=== PATIENT | female | born 1960 | race Hispanic/Latino ===

== ENCOUNTER 2024-07-31 16:51 | Emergency (ER) | payer BC ==
[~2024-07-31] VITALS: Ht 154.9 cm; Wt 46.3 kg
--- NOTE | 2024-07-31 17:44 | ERN ---
ED Note History of Present Illness Stated Complaint: MULTIPLE COMPLAINTS Chief Complaint: Weakness Time Seen by MD: 17:19 Dictation: Patient is a 64-year-old cirrhotic female coming in today with a abdominal distention and generalized body weakness for several days. She states she was just released from [facility] several days ago and had paracentesis done there, was told to find a furnace brazer. She states she called her primary care doctor who advised her to go to any hospital be admitted and have Gastroenterology examine her. Allergies: Coded Allergies: No Known Allergies (Unverified Allergy, Unknown, 07/31/24) Past Medical History Past Medical History: Hypotension, Liver Disease Surgical History: None History: Not Applicable RN Note Reviewed/Agreed w/PFSH: Yes Review of System Dictation CONSTITUTIONAL: NEGATIVE EXCEPT FOR HPI WEAKNESS HEAD/FACE: NEGATIVE EXCEPT FOR HPI EENT: NEGATIVE EXCEPT FOR HPI RESPIRATORY: NEGATIVE EXCEPT FOR HPI GASTROINTESTINAL/ABDOMINAL: NEGATIVE EXCEPT FOR HPI MILD DISTENTION GENITOURINARY: NEGATIVE EXCEPT FOR HPI MUSCULOSKELETAL: NEGATIVE EXCEPT FOR HPI INTEGUMENTARY: NEGATIVE EXCEPT FOR HPI NEUROLOGICAL/PSYCH: NEGATIVE EXCEPT FOR HPI HEMATOLOGIC/LYMPHATIC: NEGATIVE EXCEPT FOR HPI ALL SYSTEMS NEGATIVE, EXCEPT NOTED ABOVE. 13 POINT REVIEW OF SYSTEMS ASSESSED AND ALL NEGATIVE EXCEPT FOR ABOVE. Initial Vital Sign VS Vital Signs Date Time Temp Pulse Resp B/P (MAP) Pulse Ox O2 Delivery O2 Flow Rate FiO2 07/31/24 16:58 97.9 121 18 108/84 100 Room Air 0 07/31/24 19:54 21 Physical Exam Dictation VITAL SIGNS REVIEWED GENERAL APPEARANCE: ALERT, ORIENTED X 3, GB W AND POORLY CONDITIONED HEAD AND FACE: NON-TRAUMATIC. EYES: PERRL, PINK CONJUNCTIVAS, EYELID NO TRAUMA, ANTERIOR CHAMBER WITH ARCUS SENILIS. EARS: PINNAS INTACT AND NO SIGNS OF TRAUMA OR ERYTHEMA EAR CANALS CLEAR AND NO DISCHARGE TM NO ERYTHEMA NOSE: NO DISCHARGE, NO BLEEDING. OROPHARYNX: MOUTH NORMAL, TONGUE PINK, PHARYNX CLEAR,NO ERYTHEMA, TONSILS NO EXUDATES, NO ABSCESSES NOTED, MUCOUS M EMBRANE MOIST NECK: SUPPLE, NON-TENDER, NO THYROMEGALY, NO MASSES, NO JVD, NO BRUITS BREAST:DEFERRED CHEST:NO TENDERNESS, NO CREPITUS, NO PARADOXICAL MOVEMENT, NO RETRACTIONS LUNGS:CLEAR, WELL-VENTILATED, SYMMETRIC, NO RALES, NO WHEEZING, NO RHONCHI, NO STRIDOR, GOOD BREATH SOUNDS BILATERALLY HEART: REGULAR RATE, REGULAR RHYTHM, NO MURMUR, NO GALLOPS VASCULAR: NO PERIPHERAL EDEMA, ABDOMEN: SOFT, POSITIVE BOWEL SOUNDS, MILD DISTENTION WITHOUT WAVE SIGN NO GUARDING, NONTENDER, NO REBOUND, NO MASSES NO HEPATOMEGALY, NO SPLENOMEGALY, NO HANCOCK'S SIGN, NO HERNIAS. RECTAL: DEFERRED GENITAL: DEFERRED NEUROLOGICAL: NORMAL SPEECH, MOTOR FUNCTION INTACT, SENSORY FUNCTION INTACT MUSCULOSKELETAL: NECK NONTENDER, FULL RANGE OF MOTION, BACK NONTENDER, FULL RANGE OF MOTION, EXTREMITIES: NONTENDER, FULL RANGE OF MOTION SKIN: COLOR PINK, DRY, NO TURGOR, NO RASH, NO LACERATIONS, NO ABRASIONS, NO CONTUSIONS. LYMPHATIC: DEFERRED Results (Laboratory/Radiology) Laboratory/Radiology Laboratory Tests Test 07/31/24 17:58 White Blood Count 13.5 K/uL (4.8-10.8) H Red Blood Count 3.58 MIL/uL (4.00-5.50) L Hemoglobin 12.0 g/dL (12.0-16.0) Hematocrit 36.0 % (36-48) Mean Corpuscular Volume 100.6 fL (79-99) H Mean Corpuscular Hemoglobin 33.5 pg (27.0-33.0) H Mean Corpuscular Hemoglobin Concent 33.3 g/dL (32.0-36.0) Red Cell Distribution Width 14.5 % (11.0-15.5) Platelet Count 159 K/uL (130-400) Mean Platelet Volume 9.0 fL (7.5-10.5) Immature Granulocyte % (Auto) 0.7 % (0-1) Neutrophils (%) (Auto) 86.8 % (40.0-77.0) H Lymphocytes (%) (Auto) 7.8 % (21.0-51.0) L Monocytes (%) (Auto) 4.4 % (3.0-13.0) Eosinophils (%) (Auto) 0.1 % (0.0-8.0) Basophils (%) (Auto) 0.2 % (0.0-5.0) Neutrophils # (Auto) 11.7 K/uL (1.8-7.7) H Lymphocytes # (Auto) 1.1 K/uL (1.0-4.8) Monocytes # (Auto) 0.6 K/uL (0.1-1.0) Eosinophils # (Auto) 0.02 K/uL (0.00-0.70) Basophils # (Auto) 0.03 K/uL (0.00-0.20) Absolute Immature Granulocyte (auto 0.10 K/uL (0-1) Nucleated Red Blood Cells 0.0 % (0.0-0.19) White Cell Morphology Comment See comments Prothrombin Time 11.7 SEC (9.6-11.6) H Prothromb Time International Ratio 1.05 (0.85-1.15) Sodium Level 136 mmol/L (136-145) Potassium Level 3.4 mmol/L (3.5-5.1) L Chloride Level 100 mmol/L (101-111) L Carbon Dioxide Level 28 mmol/L (21-32) Blood Urea Nitrogen 53 mg/dL (7-18) H Creatinine 1.4 mg/dL (0.5-1.0) H Glomerular Filtration Rate Calc 42 mL/min (>90) Random Glucose 115 mg/dL (70-105) H Total Calcium 8.6 mg/dL (8.5-10.1) Ammonia < 10 umol/L (11-32) L PORTABLE CHEST RADIOGRAPH INDICATION: SOB COMPARISON: None FINDINGS: Heart size is normal. The pulmonary vascularity and garo appear normal. No abnormal pulmonary parenchymal opacity or consolidation identified. No significant pleural effusion noted. No pneumothorax detected. Chronic posterior left fourth and fifth rib fracture deformities. IMPRESSION: No radiographic evidence for any acute cardiopulmonary process. Labs Reviewed?: Yes ED Course ED Course Orders Procedure Category Date Status Time 12 Lead Ekg Tracing- EKG 07/31/24 Resulted Technical 17:06 Chest 1vw RAD 07/31/24 Resulted 17:06 Cbc With Differential LAB 07/31/24 Complete 17:06 Basic Metabolic Panel LAB 07/31/24 Complete 17:06 Prothrombin Time With LAB 07/31/24 Complete INR 17:06 Urinalysis Profile LAB 07/31/24 Logged 17:06 Ammonia LAB 07/31/24 Complete 17:06 Potassium Bicarb/Cit PHA 07/31/24 Complete Ac 25meq (K-Lyte Ta 19:00 0.9%Nacl 1000ml (Ns PHA 07/31/24 Complete 1000ml) 23:00 Current Medications Medications (Trade) Dose Ordered Sig/Lei Route PRN Reason Start Time Stop Time Status Last Admin Dose Admin Potassium Bicarbonate (K-Lyte Tablet Eff 25 Meq Tablet.eff) 25 meq ONCE ONCE PO 07/31/24 19:00 07/31/24 19:01 DC 07/31/24 19:57 Sodium Chloride 1,000 ml @ 0 mls/hr ONCE ONCE IV 07/31/24 23:00 07/31/24 23:01 DC 07/31/24 23:01 Vital Signs Date Time Temp Pulse Resp B/P (MAP) Pulse Ox O2 Delivery O2 Flow Rate FiO2 08/01/24 00:00 97.9 106 16 96/47 100 Room Air* 0 21 07/31/24 22:45 97.9 106 16 94/62 100 Room Air* 0 21 07/31/24 22:00 97.9 106 16 89/59 95 Room Air* 0 21 07/31/24 21:00 97.9 107 16 90/64 100 Room Air* 0 21 07/31/24 19:54 107 16 107/61 96 Room Air* 0 21 07/31/24 16:58 97.9 121 18 108/84 100 Room Air 0 0015/SPOKE WITH PATIENT'S SON ANGEL AT LENGTH. PATIENT WAS DIAGNOSED WITH A OVARIAN CANCER AND HAS BEEN REFERRED TO AN ONCOLOGIST IN [facility] SHE WAS DISCHARGED FROM THE HOSPITAL AT [facility] ON 07/18 HOWEVER THEY HAVE ONLY TRIED TO CONTACT HIM TWICE. I STRONGLY ADVISED HIM TO FOLLOW UP WITH ONCOLOGY AND BE PERSISTENT UNTIL THEY GET AN ANSWER FROM HIS OFFICE. Medical Decision Making MDM MDM: DIFFERENTIAL DIAGNOSIS: CIRRHOSIS/ASCITES/ELECTROLYTE IMBALANCE/DEHYDRATION/HYPERAMMONEMIA RATIONALE: TESTS CONSIDERED AND ORDERED SECONDARY TO SHARED DECISION MAKING INCLUDE: LABS PREVIOUS OUTSIDE RECORDS REVIEWED: OLD ER VISITS. REVIEWED RISK OF COMPLICATION AND/OR MORBIDITY OR MORTALITY OF PATIENT MANAGEMENT: NONE MEDICATIONS-PER MEDICATION RECONCILIATION NEED FOR HOSPITALIZATION: PATIENT DOES NOT MEET CRITERIA FOR HOSPITALIZATION. NO NEED FOR EMERGENCY MAJOR/MINOR SURGERY: NO THERE ARE NO SOCIAL CONCERNS WITH THIS PATIENT. PRESCRIPTION DRUG MANAGEMENT NONE PRESCRIPTIONS WILL INCLUDE SYMPTOMATIC CARE PATIENT'S PRIOR EXTERNAL MEDICAL RECORDS FROM OTHER ER VISITS WERE REVIEWED BY ME INDICATED. PRIOR TESTING AND RESULTS FROM PREVIOUS VISITS WERE REVIEWED. PRIOR TESTS WERE TAKEN INTO ACCOUNT WITH MEDICAL DECISION MAKING AND RESOURCE UTILIZATION, INDEPENDENT HISTORIAN/HISTORIANS WERE USED TO OBTAIN COMPLETE MEDICAL HISTORY. I INDEPENDENTLY INTERPRETED THE TEST THAT WERE PERFORMED, RESULTS WERE REVIEWED BY ME AND CONSIDERED FINDINGS ON RADIOLOGY IF ORDERED. MEDICAL MANAGEMENT AND EXAMINATION INTERPRETATION DISCUSSIONS WERE HAD BY ME WITH OTHER QUALIFIED HEALTHCARE PROFESSIONALS INDICATED FOR THE PATIENT'S CARE. DX & DISP Disposition: Discharge Departure Impression: Primary Impression: Alcoholic cirrhosis Additional Impressions: Chronic kidney disease, History of ovarian cancer Condition: Stable Additional Instructions: FOLLOW-UP WITH PRIMARY CARE PROVIDER IN 1 TO 2 DAYS. TAKE MEDICATIONS DIRECTED HERE IN THE EMERGENCY ROOM. OKAY TO CONTINUE HOME MEDICATIONS UNLESS OTHERWISE DISCUSSED DURING YOUR VISIT IN THE EMERGENCY ROOM TODAY. RETURN TO YOUR NEAREST EMERGENCY ROOM IF SYMPTOMS WORSEN OR IF THERE IS NO IMPROVEMENT. CALL 911 IF YOU NEED IMMEDIATE ASSISTANCE. TAKE TYLENOL OR MOTRIN [id number] NEEDED AND IF NO CONTRAINDICATIONS ARE PRESENT. INCREASE ORAL HYDRATION. A WOUND CULTURE OR URINE CULTURE WAS ORDERED HERE IN THE EMERGENCY ROOM DEPARTMENT PLEASE FOLLOW-UP WITH PRIMARY CARE PROVIDER AND ADVISE THEM TO GET REPEAT PORTS FROM OUR FACILITY. IF YOU HAD ANY EUSEBIO WRAP/SPLINTS THAT WERE APPLIED HERE, PLEASE DO NOT REMOVE THEM UNTIL YOU SEE YOUR PRIMARY CARE OR SPECIALTY. CONTINUE ALL MEDICATIONS AND TREATMENTS FROM YOUR ADMISSION TO [facility]. STRONGLY SUGGEST FOLLOWING PERSISTENTLY WITH THE ONCOLOGIST AND GET SEEN SOON POSSIBLE. ADDITIONALLY PATIENT STATES SHE HAS A THYROID NODULE POSSIBLE CYST, SHE SHOULD SEE HER DOCTOR FOR ULTRASOUND AND REFERRAL TO ENDOCRINOLOGY. Referrals: SELF,REFERRAL (PCP) Time of Disposition: 00:18 I have reviewed the case, and I agree with, Diagnosis and Plan SIENNA MONTAGUE NP Jul 31, 2024 17:44
[2024-07-31 18:07] LABS: BASOPHILS # (AUTO) 0.03 K/uL (0.00-0.20); BASOPHILS % (AUTO) 0.2 % (0.0-5.0); EOSINOPHILS # (AUTO) 0.02 K/uL (0.00-0.70); EOSINOPHILS % (AUTO) 0.1 % (0.0-8.0); LYMPHOCYTES # (AUTO) 1.1 K/uL (1.0-4.8); LYMPHOCYTES % (AUTO) 7.8 % (21.0-51.0); MEAN CORPUSCULAR HEMOGLOBIN 33.5 pg (27.0-33.0); MEAN CORPUSCULAR HGB CONC 33.3 g/dL (32.0-36.0); MEAN CORPUSCULAR VOLUME 100.6 fL (79-99); MONOCYTES # (AUTO) 0.6 K/uL (0.1-1.0); MONOCYTES % (AUTO) 4.4 % (3.0-13.0); NEUTROPHILS # (AUTO) 11.7 K/uL (1.8-7.7); NEUTROPHILS % (AUTO) 86.8 % (40.0-77.0); PLATELET COUNT (AUTO) 159 K/uL (130-400); RED BLOOD CELL COUNT(AUTO) 3.58 MIL/uL (4.00-5.50); RED CELL DISTRIBUTION WIDTH 14.5 % (11.0-15.5); WHITE BLOOD COUNT (AUTO) 13.5 K/uL (4.8-10.8)
--- NOTE | 2024-07-31 18:11 | EKG ---
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
[2024-07-31 18:17] LABS: INR 1.05 (0.85-1.15); PROTHROMBIN TIME 11.7 SEC (9.6-11.6)
[2024-07-31 18:21] LABS: AMMONIA < 10 umol/L (11-32); CARBON DIOXIDE 28 mmol/L (21-32); CHLORIDE 100 mmol/L (101-111); CREATININE 1.4 mg/dL (0.5-1.0); GLOMERULAR FILTR. RATE CALC 42 mL/min (>90); GLUCOSE,RANDOM 115 mg/dL (70-105); POTASSIUM 3.4 mmol/L (3.5-5.1); SODIUM SERUM 136 mmol/L (136-145); UREA NITROGEN, BLOOD 53 mg/dL (7-18)
--- NOTE | 2024-07-31 18:27 | HMCIMG ---
PORTABLE CHEST RADIOGRAPH INDICATION: SOB COMPARISON: None FINDINGS: Heart size is normal. The pulmonary vascularity and garo appear normal. No abnormal pulmonary parenchymal opacity or consolidation identified. No significant pleural effusion noted. No pneumothorax detected. Chronic posterior left fourth and fifth rib fracture deformities. IMPRESSION: No radiographic evidence for any acute cardiopulmonary process.
[2024-07-31] MEDS: PoTASSium BIcarbonate/CIT AC 25 MEQ TABLET.EFF PO ONE (19:57)
[2024-07-31] MEDS: 0.9%NACL 1000ML 1,000 ML IV ONE (23:01)
[2024-08-01 00:40] VITALS: BP 98/52; PULSE 106; RESP 16; TEMP 97.9; O2SAT 100
== END 2024-08-01 00:41 | disposition home or self-care (01) ==
LOC: EDH 16:51
DX: K70.30 Alcoholic cirrhosis of liver without ascites (principal); I12.9 Hypertensive chronic kidney disease with stage 1 through stage 4 chronic kidney disease, or unspecified chronic kidney disease; N18.9 Chronic kidney disease, unspecified; Z85.43 Personal history of malignant neoplasm of ovary
CPT/HCPCS: 99284; 71045; 80048; 82140; 85025; 85610; 36415; 93005; J7030

== ENCOUNTER 2024-08-05 17:36 | Emergency (ER) | payer BC ==
[~2024-08-05] VITALS: Ht 30.5 cm; Wt 47.6 kg
[2024-08-05 18:07] VITALS: TEMP 96.9
[2024-08-05 18:11] LABS: BASOPHILS # (AUTO) 0.03 K/uL (0.00-0.20); BASOPHILS % (AUTO) 0.2 % (0.0-5.0); EOSINOPHILS # (AUTO) 0.01 K/uL (0.00-0.70); EOSINOPHILS % (AUTO) 0.1 % (0.0-8.0); HEMATOCRIT 31.9 % (36-48); IMMATURE GRANULOCYTE ABSOLUTE 0.09 K/uL (0-1); LYMPHOCYTES # (AUTO) 0.7 K/uL (1.0-4.8); LYMPHOCYTES % (AUTO) 4.3 % (21.0-51.0); MEAN CORPUSCULAR HEMOGLOBIN 33.4 pg (27.0-33.0); MEAN CORPUSCULAR VOLUME 104.6 fL (79-99); MONOCYTES # (AUTO) 0.6 K/uL (0.1-1.0); MONOCYTES % (AUTO) 4.1 % (3.0-13.0); NEUTROPHILS # (AUTO) 13.8 K/uL (1.8-7.7); NEUTROPHILS % (AUTO) 90.7 % (40.0-77.0); PLATELET COUNT (AUTO) 120 K/uL (130-400); RED BLOOD CELL COUNT(AUTO) 3.05 MIL/uL (4.00-5.50); RED CELL DISTRIBUTION WIDTH 14.5 % (11.0-15.5); WHITE BLOOD COUNT (AUTO) 15.2 K/uL (4.8-10.8)
[2024-08-05 18:24] LABS: CREATININE 1.5 mg/dL (0.5-1.0); POTASSIUM 4.1 mmol/L (3.5-5.1)
[2024-08-05 18:52] LABS: BILIRUBIN,DIRECT 1.2 mg/dL (0.0-0.3); BILIRUBIN,TOTAL 2.2 mg/dL (0.2-1.0)
[2024-08-05 18:53] LABS: ALBUMIN 1.9 g/dL (3.5-5.0)
[2024-08-05 19:03] LABS: TOTAL PROTEIN, SERUM 6.4 g/dL (6.0-8.3)
--- NOTE | 2024-08-05 19:35 | HMCIMG ---
CT ABDOMEN/PELVIS W/O CONTRAST CLINICAL HISTORY: abdominal pain/distended COMPARISON: None TECHNIQUE: Sequential axial images of abdomen and pelvis without contrast and with sagittal and coronal reconstructions. CT was performed with one or more of the following dose reduction techniques: automated exposure control, adjustment of the mA and/or kV according to patient size, or use of iterative reconstruction technique FINDINGS: There is mild bibasal atelectasis. Note is made of a cirrhotic liver. The spleen is unremarkable. The gallbladder appears hydropic. The pancreas and adrenal glands are unremarkable. Urinary bladder is decompressed. Note is made of bilateral enlarged extrarenal pelvises. There is rectal fecal impaction. There is no identified bowel shaft. Note is made of large volume ascites and resulting abdominal distention. The bony structures demonstrate varus deformity of the spine secondary to the T12 fracture with multiple insufficiency fractures of the lower thoracic and lumbar spine. IMPRESSION: Cirrhosis with severe ascites. Multiple insufficiency fractures of the spine
--- NOTE | 2024-08-05 19:52 | ERN ---
ED Note History of Present Illness Stated Complaint: ABD PAIN Chief Complaint: Abdominal Pain Time Seen by MD: 17:40 Time Seen by Midlevel: 17:44 Dictation: 64-year-old female with a history of liver cirrhosis an ovarian CA coming in with complaints of abdominal pain abdominal distention, left flank pain that radiates to her left upper quadrant and left lower quadrant, and decreased appetite for the last two weeks. As per family member patient was also diagnosed couple of weeks ago with a UTI but was unable to take her antibiotics due to patient having nausea and vomiting. Patient's last paracentesis was 07/11, and was scheduled for a paracentesis on Wednesday. Allergies: Coded Allergies: No Known Allergies (Unverified Allergy, Unknown, 07/31/24) Past Medical History Past Medical History: Hypertension Additional Past Medical Hx: OSTEOPAROSIS Surgical History: None History: Not Applicable Review of System Dictation Constitutional: Negative for fever,chills, and weight loss, decreased appetite Eyes: Negative for injury, pain,redness, and discharge ENT: Negative for injury,pain or swelling Cardiovascular: Negative for chest pain, palpitations, and edema Respiratory: Negative for shortness of breath, cough, and wheezing, Abdomen/GI: Abdominal pain, nausea, vomiting, no diarrhea, and no constipation Back: Negative for injury and pain : Negative for injury, bleeding and discharge MS/Extremity: Negative for injury and deformity Skin: Negative for rash, and discoloration Neuro: Negative for headache, weakness, numbness, tingling, and seizure Psych: Negative for suicide ideation, homicidal ideation, and hallucinations Review of Systems: was completed Initial Vital Sign VS Vital Signs Date Time Temp Pulse Resp B/P (MAP) Pulse Ox O2 Delivery O2 Flow Rate FiO2 08/05/24 17:38 97.5 87 16 105/63 97 5.0 08/05/24 18:07 Room Air* 21 Physical Exam Dictation General: awake, alert, NAD, cachectic Head/Face: Normocephalic, atraumatic Eyes: PERRL, EOMI, vision at baseline ENT: oral cavity clear, TMs clear, no signs of infection Neck: Trachea midline, supple, no nuchal rigidity Cardiovascular: RRR, normal S1/S2, No MRGs, no JVD Respiratory: CTAB, no respiratory distress, No rales or wheezes Abdomen: Soft, non-tender, distended but no tense ascites, normal bowel sounds, no guarding or rebound. Skin: Warm, dry, normal turgor, no rash MS/Extremity: Pulses equal, no cyanosis, neurovascular intact, FROM Neuro: COAx4, GCS 15, strength 5/5, CN 2-12 intact, normal cerebellar exam, normal gait, Psych: Normal behavior, mood, and affect normal Results (Laboratory/Radiology) Laboratory/Radiology Laboratory Tests Test 08/05/24 18:03 White Blood Count 15.2 K/uL (4.8-10.8) H Red Blood Count 3.05 MIL/uL (4.00-5.50) L Hemoglobin 10.2 g/dL (12.0-16.0) L Hematocrit 31.9 % (36-48) L Mean Corpuscular Volume 104.6 fL (79-99) H Mean Corpuscular Hemoglobin 33.4 pg (27.0-33.0) H Mean Corpuscular Hemoglobin Concent 32.0 g/dL (32.0-36.0) Red Cell Distribution Width 14.5 % (11.0-15.5) Platelet Count 120 K/uL (130-400) L Mean Platelet Volume 9.3 fL (7.5-10.5) Immature Granulocyte % (Auto) 0.6 % (0-1) Neutrophils (%) (Auto) 90.7 % (40.0-77.0) H Lymphocytes (%) (Auto) 4.3 % (21.0-51.0) L Monocytes (%) (Auto) 4.1 % (3.0-13.0) Eosinophils (%) (Auto) 0.1 % (0.0-8.0) Basophils (%) (Auto) 0.2 % (0.0-5.0) Neutrophils # (Auto) 13.8 K/uL (1.8-7.7) H Lymphocytes # (Auto) 0.7 K/uL (1.0-4.8) L Monocytes # (Auto) 0.6 K/uL (0.1-1.0) Eosinophils # (Auto) 0.01 K/uL (0.00-0.70) Basophils # (Auto) 0.03 K/uL (0.00-0.20) Absolute Immature Granulocyte (auto 0.09 K/uL (0-1) Nucleated Red Blood Cells 0.0 % (0.0-0.19) Sodium Level 137 mmol/L (136-145) Potassium Level 4.1 mmol/L (3.5-5.1) Chloride Level 103 mmol/L (101-111) Carbon Dioxide Level 25 mmol/L (21-32) Blood Urea Nitrogen 46 mg/dL (7-18) H Creatinine 1.5 mg/dL (0.5-1.0) H Glomerular Filtration Rate Calc 39 mL/min (>90) Random Glucose 92 mg/dL (70-105) Total Calcium 8.2 mg/dL (8.5-10.1) L Total Bilirubin 2.2 mg/dL (0.2-1.0) H Direct Bilirubin 1.2 mg/dL (0.0-0.3) H Aspartate Amino Transf (AST/SGOT) 20 U/L (10-37) Alanine Aminotransferase (ALT/SGPT) 6 U/L (12-78) L Alkaline Phosphatase 55 U/L (50-136) Ammonia < 10 umol/L (11-32) L Troponin I High Sensitivity 7 ng/L (4-50) Total Protein 6.4 g/dL (6.0-8.3) Albumin 1.9 g/dL (3.5-5.0) L Lipase 57 U/L (16-77) Labs Reviewed?: Yes EKG Comment: Date:08/05/24 Time:1749 Ventricular rate:94 VA interval:121 QRS duration:28 QT/QTc: EKG interpretation: Sinus rhythm, low voltage, precordial leads Reviewed by ED Attending no STEMI interpreted by ER MD CT Scan Comment: [place] [address] IMAGING REPORT Signed PATIENT: ELVER ALLEN MR#: [id number] : 1960 SEX: F AGE: 64 LOCATION: [facility] ORDER 33 STATUS: REG ER REPORT#: [id number] SERVICE 32 REASON: abdominal pain/distended ORDERING PHYSICIAN: PHI EPPERSON NP PROCEDURE: ABD PEL WO - CT ABDOMEN/PELVIS W/O CONTRAST CT ABDOMEN/PELVIS W/O CONTRAST CLINICAL HISTORY: abdominal pain/distended COMPARISON: None TECHNIQUE: Sequential axial images of abdomen and pelvis without contrast and with sagittal and coronal reconstructions. CT was performed with one or more of the following dose reduction techniques: automated exposure control, adjustment of the mA and/or kV according to patient size, or use of iterative reconstruction technique FINDINGS: There is mild bibasal atelectasis. Note is made of a cirrhotic liver. The spleen is unremarkable. The gallbladder appears hydropic. The pancreas and adrenal glands are unremarkable. Urinary bladder is decompressed. Note is made of bilateral enlarged extrarenal pelvises. There is rectal fecal impaction. There is no identified bowel shaft. Note is made of large volume ascites and resulting abdominal distention. The bony structures demonstrate varus deformity of the spine secondary to the T12 fracture with multiple insufficiency fractures of the lower thoracic and lumbar spine. IMPRESSION: Cirrhosis with severe ascites. Multiple insufficiency fractures of the spine DICTATED BY: NELIDA SHELTON DO DATE: 08/05/241923 ELECTRONICALLY SIGNED BY: NELIDA SHELTON DO DATE: 08/05/241934 ED Course ED Course Orders Procedure Category Date Status Time Vital Signs Per CPOE 08/05/24 Transmitted Routine 17:57 Saline Lock Iv CPOE 08/05/24 Transmitted 17:57 Cbc With Differential LAB 08/05/24 Complete 17:57 Lipase LAB 08/05/24 Complete 17:57 Urinalysis Profile LAB 08/05/24 Logged 17:57 12 Lead Ekg Tracing- EKG 08/05/24 Logged Technical 17:57 Troponin I High LAB 08/05/24 Complete Sensitivity 17:57 Basic Metabolic Panel LAB 08/05/24 Complete 17:57 Ammonia LAB 08/05/24 Complete 18:04 Hepatic Function Panel LAB 08/05/24 Complete 18:31 Ct Abdomen/Pelvis W/O CT 08/05/24 Resulted Contrast 18:33 Chest 1vw RAD 08/05/24 Resulted 18:40 0.9%Nacl 1000ml (Ns PHA 08/05/24 In Process 1000ml) 20:00 Ondansetron 4mg Inj PHA 08/05/24 Complete (Zofran 4mg Inj) 19:39 Famotidine 20mg Vial PHA 08/05/24 Complete (Pepcid 20mg Vial) 19:39 Current Medications Medications (Trade) Dose Ordered Sig/Lei Route PRN Reason Start Time Stop Time Status Last Admin Dose Admin Famotidine (Pepcid 20mg Vial) 20 mg ONCE STAT IV 08/05/24 19:39 08/05/24 19:55 DC 08/05/24 19:58 Ondansetron HCl (zoFRAN 4MG INJ) 4 mg ONCE STAT IVP 08/05/24 19:39 08/05/24 19:55 DC 08/05/24 19:58 Sodium Chloride 1,000 ml @ 125 mls/hr Q8H IV 08/05/24 20:00 09/04/24 19:59 08/05/24 20:00 Vital Signs Date Time Temp Pulse Resp B/P (MAP) Pulse Ox O2 Delivery O2 Flow Rate FiO2 08/05/24 19:22 90 17 97/67 100 Room Air* 0 21 08/05/24 18:07 97.0 102 20 117/62 97 Room Air* 0 21 08/05/24 17:38 97.5 87 16 105/63 97 5.0 Medical Decision Making MDM MDM: 64-year-old female with a history of liver cirrhosis an ovarian CA coming in with complaints of abdominal pain abdominal distention, left flank pain that radiates to her left upper quadrant and left lower quadrant, and decreased appetite for the last two weeks. As per family member patient was also diagnosed couple of weeks ago with a UTI but was unable to take her antibiotics due to patient having nausea and vomiting. Patient's last paracentesis was 07/11, and was scheduled for a paracentesis on Wednesday.CBC shows leukocytosis of 15, macrocytic anemia thrombocytopenia. This could be related to her liver cirrhosis. Chemistry shows no electrolyte abnormality, elevation of the BUN and creatinine however this is consistent with previous visit here. No transaminitis. Less than 10 ammonia, troponin is negative, EKGs did not show any ST elevation or dysrhythmias.An of the abdomen and pelvis without contrast shows cirrhosis with severe ascites, there was deformity of the spine secondary to the T12 fracture with multiple insufficiency fractures of the lower thoracic and lumbar spine. Went to reassess patient, patient states no recent falls, denies any incontinence, saddle anesthesia, or numbness or tingling to lower extremities. States she fell back in May, was able to ambulate after fall but recently began to feel generalized body weakness. Spoke to radiologist to s aditi if these fractures or acute or chronic was unable to tell me based off with a CT scan. Spoke to Christie about admitting the patient, states she was speak to her supervising physician to see if the patient needs to be transferred for that T12 fracture. Pending call back. Differential diagnosis: UTI, ascites, Rationale: Tests considered and ordered secondary to shared decision making include: labs, ECG and radiology Previous outside records reviewed: Old ER visits. Risk of complication and/or morbidity or mortality of patient management: None Medications-Per medication reconciliation Need for hospitalization: Patient does meet criteria for hospitalization. Need for emergency major/minor surgery: No There are no social concerns with this patient. Prescription drug management Prescriptions will include symptomatic care Patient's prior external medical records from other ER visits were reviewed by me as indicated. Prior testing and results from previous visits were reviewed. Prior tests were taken into account with medical decision making and resource utilization, independent historian/historians were used to obtain complete medi gary history. I independently interpreted the test that were performed, results were reviewed by me and considered findings on radiology if ordered. Medical management and examination interpretation discussions were had by me with other qualified healthcare professionals as indicated for the patient's care. DX & DISP Disposition: Inpatient Departure Impression: Primary Impression: Liver cirrhosis Additional Impressions: Failure to thrive in adult, Ascites Condition: Stable Referrals: ISAEL PICKARD FN (PCP) PHI EPPERSON NP Aug 05, 2024 19:52
[2024-08-05] MEDS: ondanSETRON 4MG INJ IVP STA (19:58)
[2024-08-05] MEDS: FAMOTIDINE 20MG VIAL IV STA (19:58)
[2024-08-05] MEDS: 0.9%NACL 1000ML 1,000 ML IV SCH (20:00)
--- NOTE | 2024-08-05 20:03 | HMCIMG ---
CHEST 1VW CLINICAL HISTORY: cough COMPARISON: 07/31/2024 TECHNIQUE: Single view of the chest was obtained. FINDINGS: The lungs are hypoventilated. The cardiac size and mediastinum are unremarkable. The bony structures are within normal limits. IMPRESSION: Hypoventilation.
--- NOTE | 2024-08-06 00:09 | NUR ---
TRANSFER CALL PLACED TO [facility] AND [employer]TER TO INITIATE TRANSFER FOR NEUROSURGERY SERVICES.
--- NOTE | 2024-08-06 00:10 | NUR ---
FRANCHESCA ALLEN [facility] NUMBER [phone]
--- NOTE | 2024-08-06 03:05 | NUR ---
TRANSFER PT. WAS ACCEPTED @ 0228 BY EDNA JOSEPH MD FOR TRANSFER TO [facility]. ROOM ASSIGNMENT AT THIS TIME: 342. REPORT: [phone]
--- NOTE | 2024-08-06 03:15 | NUR ---
[facility] CALLED FOR TRANSPORT OF NEUROSURGERY PT.
[2024-08-06 05:21] VITALS: BP 127/74; PULSE 87; RESP 18; O2SAT 100
--- NOTE | 2024-08-06 05:47 | NUR ---
[place] [facility] [place] [id number]. REPORT GIVEN TO EMS
--- NOTE | 2024-08-06 05:52 | NUR ---
[place] [facility] [place] ARRIVAL [place] [facility].
--- NOTE | 2024-08-06 05:52 | NUR ---
DEPARTURE CORRECTED DEPARTURE TIME: 2900
--- NOTE | 2024-08-06 05:53 | NUR ---
ATTEMPT TO GIVE REPORT TO [facility] AT THIS TIME. PENDING CALL BACK
--- NOTE | 2024-08-06 06:15 | NUR ---
REPORT GIVEN TO REJI CLARK T THIS TIME
== END 2024-08-06 06:29 | disposition short-term general hospital (02) ==
LOC: EDH 17:36
DX: K74.60 Unspecified cirrhosis of liver (principal); R62.7 Adult failure to thrive; R18.8 Other ascites; I10 Essential (primary) hypertension
CPT/HCPCS: 99285; 74176; 96374; 71045; 96375; 80076; 84484; 80048; 82140; 83690; 85025; 36415; J3490; J2405